=== PATIENT | male | born 1980 | race Two or more races ===

== ENCOUNTER 2016-11-04 15:01 | Emergency (ER) | payer MEDICAID ==
--- NOTE | 2016-11-04 15:56 | RAD ---
RIGHT ANKLE 3 VIEWS HISTORY: Landed on foot wrong, ankle pain. COMPARISONS: None. TECHNIQUE: Frontal, lateral, and oblique views of the right ankle. ALIGNMENT: Grossly unremarkable. Ankle mortise intact. FRACTURE: Comminuted fracture of the anterior calcaneus, minimal displacement of fracture fragments. SOFT TISSUES: Diffuse soft tissue swelling and joint effusion. RADIOOPAQUE FOREIGN BODY: None. IMPRESSION: Comminuted fracture of the anterior calcaneus. Diffuse soft tissue swelling joint effusion. Ankle mortise grossly intact.
--- NOTE | 2016-11-04 17:14 | RAD ---
RIGHT OS CALCIS ONE VIEW HISTORY: Anterior calcaneal fracture. COMPARISONS: Ankle series of the same date. TECHNIQUE: Otero view of the right calcaneus. ALIGNMENT: Grossly unremarkable. FRACTURE: The known anterior calcaneal fracture is poorly assessed on this study, no displaced posterior calcaneal fracture noted SOFT TISSUES: Medial soft tissue swelling. RADIOOPAQUE FOREIGN BODY: None. IMPRESSION: Limited Otero view demonstrates no displaced posterior calcaneal fracture.
[2016-11-04] MEDS ORDERED: HYDROCODONE/ACETAMINOPHEN 5/325MG TABLET ONE (17:17)
[2016-11-04] MEDS ORDERED: IBUPROFEN 600 MG TABLET ONE (17:17)
--- NOTE | 2016-11-04 17:19 | CT ---
Right foot CT examination without contrast HISTORY: Assess calcaneal fracture. No intravenous contrast administered. Contiguous axial images acquired from the level of the distal tibia to the level of the metatarsals. FINDINGS: Fracture: Comminuted fracture of the calcaneus mild comminution and impaction. Alignment at the calcaneocuboid and subtalar joints remains grossly preserved no additional displaced fracture is identified. Soft tissues: Minor dorsal soft tissue swelling. No gross joint effusion. Distal Achilles tendon grossly unremarkable in appearance. Impression: Mildly comminuted, mildly displaced fracture of the of the calcaneus with grossly preserved hindfoot alignment. Minor associated soft tissue swelling. No additional displaced fracture identified.
== END 2016-11-04 18:19 | disposition home or self-care (01) ==
LOC: ED 15:01
DX: S92.001A Unspecified fracture of right calcaneus, initial encounter for closed fracture (principal); X58.XXXA Exposure to other specified factors, initial encounter
CPT/HCPCS: 73610; 73650; 73700; 99284 ×2; 29515; A9270 ×2